=== PATIENT | male | born 1990 | race African-American/Black ===

== ENCOUNTER 2025-04-27 16:06 | Emergency (ER) | payer MEDICAID ==
[~2025-04-27] VITALS: Ht 170.2 cm; Wt 83.0 kg
[2025-04-27 16:39] VITALS: BP 134/89; PULSE 59; RESP 18; TEMP 98.4; O2SAT 100
[2025-04-27 16:55] LABS: COVID AG,FIA SOURCE NASAL SWAB
[2025-04-27 17:10] LABS: RAPID GROUP A STREP PRELIM. NEGATIVE (NEGATIVE)
[2025-04-27 17:22] LABS: SARS-COV2 (COVID) ANTIGEN,FIA Negative (Negative)
[2025-04-27 17:23] LABS: INFLUENZA TYPE A NEGATIVE FOR TYPE A (NEGATIVE); INFLUENZA TYPE B NEGATIVE FOR TYPE B (NEGATIVE)
[2025-04-27] MEDS ORDERED: AMOX500C2 PO (17:39)
[2025-04-27] MEDS: AMOXICILLIN TRIHYDRATE 250 MG CAPSULE PO ONE (17:42)
== END 2025-04-27 17:55 | disposition home or self-care (01) ==
LOC: EMS 16:06
DX: J02.0 Streptococcal pharyngitis (principal); F17.210 Nicotine dependence, cigarettes, uncomplicated; J45.909 Unspecified asthma, uncomplicated; Z20.822 Contact with and (suspected) exposure to COVID-19
CPT/HCPCS: 87081; 87430; 87804; 99283